=== PATIENT | male | born 1955 | race Caucasian/White ===

== ENCOUNTER 2024-05-28 13:43 | Inpatient (IN) | payer MEDICARE, BC, OTHER, SELFPAY ==
[2024-05-27] VITALS (19 sets, daily range): BP systolic 95–140; BP diastolic 63–96; BMI 31.9
[2024-05-27 01:15] LABS: % Basophils 0.9 % (0-2); % Eosinophils 3.9 % (0-6); % Immature Granulocytes 0.3 % (0-0.5); % Lymphocytes 34.5 % (20.5-51.1); % Monocytes 9.6 % (1.7-9.3); % Neutrophils 50.8 % (42.2-75.2); Absolute Basophils 0.1 10^3/uL (0-0.2); Absolute Eosinophils 0.3 10^3/uL (0-0.7); Absolute Lymphocytes 2.2 10^3/uL (1.2-3.4); Absolute Monocytes 0.6 10^3/uL (0.1-0.6); Absolute Neutrophils 3.3 10^3/uL (1.4-6.5); Hematocrit 41.2 % (39.0-52.0); Hemoglobin 13.8 g/dL (13.0-18.0); Mean Corp Hgb Conc. 33.5 g/dL (33.0-37.0); Mean Corpuscular Hgb 30.1 pg (27.0-31.0); Nucleated Red Blood Cells % 0 % (-); Platelet Count 221 10^3/uL (130-400); Red Blood Cell Count 4.58 10^6/uL (4.70-6.10); Red Cell Dist. Width 12.6 % (11.5-14.5); White Blood Cell Count 6.5 10^3/uL (4.8-10.8)
[2024-05-27 01:30] LABS: ALT (SGPT) 20 U/L (0-50); AST (SGOT) 25 U/L (17-59); Albumin 4.6 g/dl (3.5-5.0); Alkaline Phosphatase 48 U/L (38-126); Blood Urea Nitrogen 22 mg/dl (9-20); Calcium 9.9 mg/dl (8.4-10.2); Carbon Dioxide 27 mmol/L (22-30); Chloride 104 mmol/L (98-107); Glucose 129 mg/dl (70-99); Potassium 3.7 mmol/L (3.5-5.1); Sodium 143 mmol/L (135-145); Total Bilirubin 1.2 mg/dl (0.2-1.3); Total Protein 7.2 g/dl (6.3-8.2); eGFR > 60.00
[2024-05-27 01:33] LABS: Troponin I < 0.012 ng/ml
--- NOTE | 2024-05-27 02:56 | ED.GENMED ---
History of Present Illness
<ABRAHAM Stratton - Last Filed: 05/27/24 03:52>
General
Chief Complaint: Cardiac Symptoms
Source: patient and spouse
Exam Limitations: none
Time Seen by Provider: 05/27/24 03:25
Nursing documentation reviewed up to this point in time: agreed with
History of Present Illness
History of Present Illness:
Pt is a 68 y/o M w/ PMH of type 2 DM, HLD, skin cancer and kidney stones who presents to the ED for 'heart fluttering' x 1 hour. He states it began as he was sitting on the toilet for a BM but denies he was straining at the time. He states nothing
made it worse or better. He states he could feel it in his chest and it was constant. He states he had one episode of the same feeling when he was 18 y/o. Upon arrival to the ED today, he states that the fluttering has stopped. He also admits to a
brief episode of nausea and jaw pain that occurred during the episode of flutter that only lasted for a few minutes and then resolved. Pt denies headache, vomiting, changes in vision, chest pain, dyspnea, abdominal pain, weakness or tingling in
extremities x 4, and diarrhea.
Past History
<ABRAHAM Stratton - Last Filed: 05/27/24 03:52>
Past History
ED Past Medical History: Hypercholesterolemia, NIDDM and Other (hx of chronic knee pain. )
ED Past Surgical History: Other (right knee surgery. )
Social History
Living: with family
Review of Systems
<ABRAHAM Stratton - Last Filed: 05/27/24 03:52>
Review of Systems
Allergies reviewed?: Yes
Other source history: family
Constitutional: Reports no symptoms
Respiratory: Reports no symptoms
Cardiac: Reports palpitations (pt describes fluttering); Denies chest pain, diaphoresis or syncope
ABD/GI: Reports nausea (briefly during fluttering episode); Denies abdominal pain, vomiting, diarrhea or bloody stools
: Reports no symptoms
Musculoskeletal: Reports other (jaw pain lasting for a few moments during fluttering episode)
Neurological: Reports no symptoms
Phy Exam
<ABRAHAM Stratton - Last Filed: 05/27/24 03:52>
General Physical Exam
General Presentation: well appearing and no apparent distress
General age: appears stated age
General Skin: warm and dry
General Habitus: normal
General Mental: alert
General Hydration: appears well hydrated
Cardiovascular Exam
Cardiovascular Exam: regular rate/rhythm, no edema, no gallop and no murmur
Pulmonary Exam
Pulmonary Exam: lungs clear and no respiratory distress
Course
<ABRAHAM Stratton - Last Filed: 05/27/24 03:52>
Orders/Labs/Results
Orders:
Orders
05/27/24 00:34
ECG [Electrocardiogram (*1)] Urgent
Reason for Study: Palpitations
EKG- Treatment ONCE
05/27/24 00:59
Complete Blood Count/With Diff Urgent
Comprehensive Metabolic Panel Urgent
Magnesium Urgent
Comment: ADD ON
TSH Reflex To Free T4 Urgent
Comment: ADD ON
Troponin I Urgent
05/27/24 03:27
Add On- LAB Urgent
Tests Added?: TSH w reflex to free T-4: Magnesium
05/27/24 04:05
Troponin I Urgent
05/27/24 04:19
0.9% Sodium Chloride 1000 ml [Nss] 1,000 ml IV BOLUS
Abnormal Lab Results
05/27/24 05/27/24
00:59 04:05
RBC 4.58 L 10^6/uL
(4.70-6.10)
Monocytes % 9.6 H %
(1.7-9.3)
BUN 22 H mg/dl
(9-20)
Glucose 129 H mg/dl
(70-99)
Troponin I 0.070 H* D ng/ml
05/27/24 00:59
05/27/24 00:59
Vital Signs
Initial and Last Documented VS:
Initial Vital Signs
Temp Pulse Resp BP Pulse Ox
97.8 F 118 20 140/94 95
05/27/24 00:43 05/27/24 00:43 05/27/24 00:43 05/27/24 00:43 05/27/24 00:43
Last Documented Vital Signs
Temp Pulse Resp BP Pulse Ox
97.8 F 67 17 102/71 95
05/27/24 00:43 05/27/24 05:00 05/27/24 05:00 05/27/24 05:00 05/27/24 05:00
<Yani Phan, DO - Last Filed: 05/27/24 06:03>
Orders/Labs/Results
Orders:
Orders
05/27/24 00:34
ECG [Electrocardiogram (*1)] Urgent
Reason for Study: Palpitations
EKG- Treatment ONCE
05/27/24 00:59
Complete Blood Count/With Diff Urgent
Comprehensive Metabolic Panel Urgent
Magnesium Urgent
Comment: ADD ON
TSH Reflex To Free T4 Urgent
Comment: ADD ON
Troponin I Urgent
05/27/24 03:27
Add On- LAB Urgent
Tests Added?: TSH w reflex to free T-4: Magnesium
05/27/24 04:05
Troponin I Urgent
05/27/24 04:19
0.9% Sodium Chloride 1000 ml [Nss] 1,000 ml IV BOLUS
Abnormal Lab Results
05/27/24 05/27/24
00:59 04:05
RBC 4.58 L 10^6/uL
(4.70-6.10)
Monocytes % 9.6 H %
(1.7-9.3)
BUN 22 H mg/dl
(9-20)
Glucose 129 H mg/dl
(70-99)
Troponin I 0.070 H* D ng/ml
05/27/24 00:59
05/27/24 00:59
Vital Signs
Initial and Last Documented VS:
Initial Vital Signs
Temp Pulse Resp BP Pulse Ox
97.8 F 118 20 140/94 95
05/27/24 00:43 05/27/24 00:43 05/27/24 00:43 05/27/24 00:43 05/27/24 00:43
Last Documented Vital Signs
Temp Pulse Resp BP Pulse Ox
97.8 F 67 17 102/71 95
05/27/24 00:43 05/27/24 05:00 05/27/24 05:00 05/27/24 05:00 05/27/24 05:00
<ABRAHAM Stratton - Last Filed: 05/27/24 03:52>
MDM/Problems Addressed
Differential Diagnosis Includes:
AFib, SVT, anxiety
<ABRAHAM Stratton - Last Filed: 05/27/24 03:52>
*Critical Care Note
Total Time (30-74mins, 75-104mins- exclusive of procedures): Not Applicable
ED Attending Note
<ABRAHAM Stratton - Last Filed: 05/27/24 03:52>
-
Portions of this chart may have been created with voice recognition software.� Occasional wrong word or��sound alike� substitutions may have occurred due to the inherent limitations of voice recognition software.
<Yani Phan, DO - Last Filed: 05/27/24 06:03>
ED Attending Note
Patient seen and examined by attending physician: Yes
I performed the substantive portion of visit, reviewed & personally made and approve the management plan that is documented in note by myself or AR.: Yes
ED Attending Note:
This is a 68-year-old gentleman with history of myb-srjzkqs-xwdniolpf diabetes, hyperlipidemia, kidney stones. He complains of palpitations that began tonight approximately 1 hour prior to arrival while sitting on the toilet. Palpitations
described as his heart beating very fast with intermittent episodes of skipping or pounding hard in nature. He denies dizziness nor lightheadedness but does admit to mild ache in his jaw. No chest pain, no shortness of breath, no diaphoresis.
Palpitations persisted for approximately an hour thus he presented to the ED for further evaluation but just prior to arrival palpitations resolved and he has been asymptomatic since arrival.
He admits to 1 similar episode when he was in his 20s. No history of CAD nor arrhythmia.
He admits to moderate alcohol consumption tonight and he admits to at least 1 alcoholic drink per evening but has been drinking a little more since .
No recent URI nor GI illness.
No leg pain or swelling.
Initial triage EKG shows sinus tachycardia at heart rate of 108 otherwise unremarkable.
quality assurance monitor shows normal sinus rhythm. No ectopy.
GENERAL: 68-year-old gentleman appears his stated age, awake and alert, pleasant, appears in no acute distress. is accompanying.
EYE: anicteric
NECK: Supple, nontender, no meningismus, no significant adenopathy.
ENT: , oral mucosa is moist. No rhinorrhea.
CARDIAC: Regular rate and rhythm. no murmur.
LUNGS: Clear breath sounds bilaterally, no acute respiratory distress, no wheezes/rales/rhonchi
ABDOMEN: Soft, nondistended, without focal tenderness, normoactive BS.
NEUROLOGICAL: Alert and oriented x3, no focal neuro deficits.
SKIN: Warm and dry, normal color, skin intact. No rash.
MUSCULOSKELETAL: No C/C/E. peripheral pulses are full and equal b/l. No palpable tenderness.
PSYCH: Normal and appropriate interaction.
Concern for tacky arrhythmia that resolved prior to arrival. Concern for thyroid disorder, electrolyte abnormality, dehydration.
With palpitations and complaints of jaw ache, concern for ACS.
Thus far labs are unremarkable. Normal troponin. Will add magnesium, thyroid functions and will recheck troponin.
05/27/2024 0600 AM
Patient remains asymptomatic.
Monitor continues to normal sinus rhythm.
Initial troponin negative but repeat has trended up to 0.07.
As above, I have significant concern for tacky arrhythmia with demand ischemia.
Case discussed with cardiology who request patient be admitted to hospital service with consult to cardiology.
Discharge Plan
Departure
Patient Disposition: Admit
Date of Disposition: 05/27/24
Time of Disposition: 06:02
Admit to doctor: Joasfat
Presentation/result/management discussed w/ accepting MD/DO: Hospitalist
Condition: Fair
Discharge Problem:
ACS (acute coronary syndrome), Palpitations
Prescriptions:
No Action
atorvastatin 20 MG tablet
20 mg PO QPM
cyanocobalamin (vitamin B-12) 1,000 MCG tablet
1,000 mcg PO DAILY
aspirin 81 MG tablet,delayed release (DR/EC)
81 mg PO DAILY
metformin 1,000 MG tablet
500 mg PO BID
tadalafil [Cialis] 5 MG tablet
5 mg PO DAILY
magnesium Tablet
1 tab PO DAILY
Rx Instructions:
unsure of mg
Ozempic 0.25 mg or 0.5 mg (2 mg/3 mL) Pen Injector
0.25 mg SC QWEEK
Referrals:
Matthew Mcrae MD [Family Provider] -
Interventions
Interventions:
*Risk Screen - Suicide Last Done: 05/27/24 00:43
*Neglect/Abuse Screening Last Done: 05/27/24 00:43
ED- Fall Risk Assessment Last Done: 05/27/24 02:20
*ED COVID-19 Vaccine History Last Done: 05/27/24 02:20
ED- Pulmonary Assessment Last Done: 05/27/24 02:20
ED- Cardiac Assessment Last Done: 05/27/24 02:20
Discharge Date and Time
Print Language: POLISH
[2024-05-27 03:52] LABS: Magnesium 1.6 mg/dl (1.6-2.3)
[2024-05-27 04:24] LABS: TSH Reflex To Free T4 2.75 uIU/ml (0.47-4.68)
[2024-05-27] MEDS: NSS 1000 IV (04:57)
--- NOTE | 2024-05-27 06:28 | HPS.HSE ---
Family Physician
-
Family Physician: Matthew Mcrae
Chief Complaint
-
Palpitations
History of Present Illness
Patient is a 68y M with PMH significant for DM-II who presents to ED complaining of palpitations. Patient states that he was preparing for bed last PM when he noted racing / irregular heart beat in his chest. He felt somewhat 'woozy' and
nauseated. He noted some numbness in the jaw. No emesis. No SOB or diaphoresis. He denies any chest pain or pressure. He presents to the ED for further evaluation and treatment. Patient states that his symptoms resolved just prior to arriving
here - lasting about 1 hour in total.
Patient notes that he had a similar episode about 50 years ago. He was seen in the ED at that time and advised to 'bear down' if it ever happened again. No episodes in the interim.
In the ED, patient is resting comfortably and has no complaints at present.
Medical History
Past Medical History
Past Medical History: Reports Other
Additional Past Medical History:
DM-II
History of SVT
Glaucoma
Past Surgical History: Reports Other
Additional Past Surgical History:
R Eye Surgery
Cataracts
Cholecystectomy
Shoulder Surgery
Bilateral Knee Surgeries
Social History
Tobacco: Former Smoker (Quit smoking 30 years ago. Approx 30 pack years total use.)
Alcohol: Daily (2 drinks daily. Last drink was this evening.)
Drug: None
Personal:
Living: With Family
Family History
Family History: Other (Father: DM, CAD Mother: Head and Neck Cancer)
Allergies / Home Medications
Allergies reflects when Allergies were last updated in [facility].
Home Medications with original date entered in [facility]
Allergy/Medication List:
Allergies
Allergy/AdvReac Type Severity Reaction Status Date / Time
penicillin V Allergy Rash Verified 05/27/24 00:46
Home Medications
aspirin 81 mg tablet,delayed release 81 mg PO DAILY 08/12/20
atorvastatin 20 mg tablet 20 mg PO QPM 08/12/20
cyanocobalamin (vitamin B-12) 1,000 mcg tablet 1,000 mcg PO DAILY 08/12/20
metformin 1,000 mg tablet 500 mg PO BID 08/12/20
tadalafil 5 mg tablet (Cialis) 5 mg PO DAILY 08/12/20
magnesium 1 tab PO DAILY 05/27/24
semaglutide 0.25 mg or 0.5 mg (2 mg/3 mL) subcutaneous pen injector (Ozempic) 0.25 mg SC QWEEK 05/27/24
Review of Systems
-
History Source: Patient
A 12 point ROS was completed and negative except as noted: Yes
Constitutional: Denies Fever or Chills
EENT: Denies Sore Throat
Respiratory: Denies Cough or Trouble Breathing
Cardiac: Reports Palpitations; Denies Chest Pain, Diaphoresis or Syncope
Abdomen/GI: Reports Nausea; Denies Abdominal Pain, Vomiting or Diarrhea
: Denies Dysuria or Frequency
Neurological: Reports Dizzy; Denies Headache
Psych: Denies Depression or Anxiety
Physical Exam
Vital Signs
Vital Signs
Temp Pulse Resp BP Pulse Ox
97.8 F 67 17 102/71 95
05/27/24 00:43 05/27/24 05:00 05/27/24 05:00 05/27/24 05:00 05/27/24 05:00
Physical Exam
General: Other (68y M in no acute distress.)
HEENT: Moist mucous membranes and PERRLA
Respiratory: Clear; No Wheezes, Rales or Rhonchi
Cardiac: S1/S2 and Regular Rhythm; No Murmur
GI: Soft, Non Tender, Non Distended and Normal Bowel Sounds
Musculoskeletal: No Clubbing, No Cyanosis and No Edema
Neuro: AO x 3
Laboratory Results
-
05/27/24 00:59
05/27/24 00:59
Laboratory Results
Total Bilirubin 1.2 mg/dl (0.2-1.3) 05/27/24 00:59
AST 25 U/L (17-59) 05/27/24 00:59
ALT 20 U/L (0-50) 05/27/24 00:59
Alkaline Phosphatase 48 U/L (38-126) 05/27/24 00:59
Troponin I 0.070 ng/ml H* D 05/27/24 04:05
Impression/Plan
-
A/P: Patient is a 68y M with PMH significant for DM who presents to ED complaining of palpitations.
Palpitations
Abnormal Troponin
- Observe overnight for further evaluation and treatment.
- ? SVT that spontaneously resolved - prior h/o similar 50 some years ago.
- Monitor on telemetry for any recurrence.
- TFTs are normal. Check Echo.
- Troponin mildly elevated on 2nd set - likely due to tachyarrhythmia.
- No complaints of chest pain, dyspnea, etc.
- Follow troponin to peak.
- Cardiology evaluation for additional recommendations.
DM-II
- Stable. Hold PO medications / Ozempic acutely.
- Follow glucose and cover with SSI as needed.
- Update A1C.
DVT Prophylaxis: SCDs
Code Status: Full
[2024-05-27] MEDS: ASPIR LOW (ENTERIC COATED) 81 MG PO (08:34)
[2024-05-27 09:42] LABS: Glucose - Point of Care 101 mg/dl (70-99)
--- NOTE | 2024-05-27 10:10 | W.PN.HOSP.TC ---
Today's Communication/Plan
-
See plan
Assessment / Plan
Assessment / Plan
Impression:
Patient is a 68y M with PMH significant for DM who presents to ED complaining of palpitations.
Palpitations
Non-AK troponin elevation
Diabetes type 2
Plan:
Self-limited episode of palpitations
Currently ECG normal sinus rhythm
Denies chest pain, shortness of breath, lower extremity pain.
Non-AK troponin elevation.
Cardiac monitoring
Echocardiogram.
D-dimer.
Follow troponin trend
Cardiology evaluation
DM-II
- Stable. Hold PO medications / Ozempic acutely.
- Follow glucose and cover with SSI as needed.
- Update A1C.
DVT Prophylaxis: SCDs
Code Status: Full
Anticipated Discharge: Within 24 hours
Subjective/Interval History
-
Date of Service: May 27, 2024
Objective Data
-
Labs:
Laboratory Results
05/27/24
00:59
WBC 6.5
Hgb 13.8
Hct 41.2
Plt Count 221
Sodium 143
Potassium 3.7
Chloride 104
Carbon Dioxide 27
BUN 22 H
Creatinine 1.0
Glucose 129 H
Calcium 9.9
Total Bilirubin 1.2
AST 25
ALT 20
Alkaline Phosphatase 48
Vital Signs:
Vital Signs
Temp Pulse Resp BP Pulse Ox
97.6 F 80 18 117/72 91
05/27/24 08:15 05/27/24 10:00 05/27/24 10:00 05/27/24 09:00 05/27/24 10:00
Physical Exam
-
General: Well Developed and No Apparent Distress
HEENT: Normocephalic, Atraumatic and Moist Mucous Membranes
Respiratory: Clear to Auscultation
Cardiac: Regular Rhythm and S1/S2; Negative Murmur, Rub or Gallop
GI: Soft, Nontender, Nondistended and Normal Bowel Sounds; Negative Organomegaly
Rectal: Deferred by Provider
Musculoskeletal: No Clubbing, No Cyanosis and No Edema
Skin: Negative Rash
Neuro: Nonfocal/Grossly Intact
[2024-05-27 10:39] LABS: D-Dimer 0.69 ug/mlFEU (0.00-0.50)
[2024-05-27 10:48] LABS: Troponin I 0.054 ng/ml
[2024-05-27 12:00] LABS: Glucose - Point of Care 108 mg/dl (70-99)
--- NOTE | 2024-05-27 12:19 | CON.CAR ---
Addendum entered and electronically signed by Salvatore Quintanilla MD 05/27/24 18:34:
I saw and examined the patient.
The [facility] Clinical Programmer's note was reviewed and I agree with the note.
Comment: Briefly, 68-year-old man past medical history of pam-ndvvcyh-iitxveqfo diabetes and hyperlipidemia who presented following an episode of palpitations. He had abrupt onset of heart racing sensation and tells me this was a regular. By his
description it is possible this was an episode of atrial fibrillation.
ECG on arrival showed sinus tachycardia
No arrhythmias seen on telemetry thus far
Initial troponin was undetectable and then phyllis to 0.07 and down trended subsequently
Transthoracic echocardiogram with normal biventricular function and no segmental wall abnormalities
CTA performed which was unremarkable
Monitor on telemetry overnight
At time of discharge would plan for long-term outpatient monitor to assess for arrhythmia
Discussed rise and fall of troponin with patient and who is at bedside. He was not experiencing chest pain at the time of his arrhythmia but did have jaw discomfort which he has never experienced before by his report. I explained that left
heart catheterization would be reasonable and he is agreeable to proceed. Explained that alternatively medical management and outpatient stress testing would be an option.
Continue aspirin and atorvastatin for now
N.p.o. at midnight for left heart catheterization tomorrow
Original Note:
Consultation
Consultation Request
Date/Time Consultation Requested: 05/27/24
Date/Time Consultation Performed: 05/27/24
Requesting Provider: Dr. Mendoza
Performing Provider: Dr. Quintanilla
Reason for Consultation: Palpitations, jaw pain
Medical History
-
History of Present Illness:
Patient came to [facility] very early this morning with palpitations and cardiology has been consulted. Patient had a normal day yesterday, but while seated on the toilet and emptying his bladder he suddenly felt palpitations. He also had B/L jaw pain. He
went to bed and couldn't fall asleep because his heart was racing. His could hear his fast and irregular heart beat when she listened to his chest and so they came to [facility]. Patient says palpitations stopped as he walked into the ER. He was in
SR on ECG and initial Troponin was normal and then up to 0.07, but is now trending down. Jaw pain resolved last night without specific intervention and has not recurred. He exercises with a rowing machine several times a week and does not get jaw
pain. No previous cardiac testing.
PMH:
DM 2
Hyperlipidemia
Past Medical History
Past Medical History: Other (in HPI)
Past Surgical History: Orthopedic and Other (h/o orbital fracture with surgical repair)
Social History
Tobacco: Former Smoker
Alcohol: Daily
Drug: None
Personal:
Living: With Family
Family History
Family History: Diabetes and Hypertension
Allergies / Home Medications
Allergy/AdvReac Type Severity Reaction Status Date / Time
penicillin V Allergy Rash Verified 05/27/24 00:46
�Medication �Instructions �Recorded �Confirmed �Type
aspirin 81 mg tablet,delayed 81 mg PO DAILY 08/12/20 05/27/24 History
release
atorvastatin 20 mg tablet 20 mg PO QPM 08/12/20 05/27/24 History
cyanocobalamin (vitamin B-12) 1,000 mcg PO DAILY 08/12/20 05/27/24 History
1,000 mcg tablet
tadalafil 5 mg tablet (Cialis) 5 mg PO DAILY 08/12/20 05/27/24 History
coenzyme Q10 100 mg capsule 200 mg PO MOWEFR 05/27/24 05/27/24 History
(CoQ-10)
ibuprofen 200 mg tablet 400 mg PO Q6H PRN mild pain 05/27/24 05/27/24 History
magnesium 1 tab PO DAILY 05/27/24 05/27/24 History
metformin 500 mg tablet 500 mg PO BID 05/27/24 05/27/24 History
semaglutide 0.25 mg or 0.5 mg (2 0.25 mg SC MO 05/27/24 05/27/24 History
mg/3 mL) subcutaneous pen injector
(Ozempic)
Review of Systems
-
History Source: Patient and Family ( sitting bedside)
All other systems: Negative unless noted
Physical Exam
Vital Signs
Temp Pulse Resp BP Pulse Ox
97.6 F 74 20 108/68 91
05/27/24 08:15 05/27/24 11:45 05/27/24 11:45 05/27/24 11:12 05/27/24 11:45
GEN: NAD. AAOx3
HEENT: EOMI, MMM
LUNGS: RA. CTA B/L, no wheezes/rales
CV: Reg, S1/S2, no murmur
ABD: soft, BS+, NT, ND
EXT: No clubbing, cyanosis, lesions or edema B/L
NEURO: Gross non-focal
SKIN: Warm, dry and pink. No rash
Lab Results
05/27/24 00:59
05/27/24 00:59
Troponin I 0.054 ng/ml H* 05/27/24 10:14
Impression / Plan
-
PCP: Dr. Mcrae
Cardiology: None prior to admission
Impression:
Admitted with palpitations and elevated Troponin 05/27/24
Elevated Troponin
Jaw pain
Palpitations
DM 2
Hyperlipidemia
Elevated D dimer
Echo 05/27/2024: EF 55 to 60%, no gross regional wall motion abnormality mild concentric LVH, normal RV size and function, no significant valvular pathology
Plan:
-Patient came to [facility] very early this morning with palpitations and cardiology has been consulted. Patient had a normal day yesterday, but while seated on the toilet and emptying his bladder he suddenly felt palpitations. He also had B/L jaw pain.
He went to bed and couldn't fall asleep because his heart was racing. His could hear his fast and irregular heart beat when she listened to his chest and so they came to [facility]. Patient says palpitations stopped as he walked into the ER. He was
in SR on ECG and initial Troponin was normal and then up to 0.07, but is now trending down. Jaw pain resolved last night without specific intervention and has not recurred. He exercises with a rowing machine several times a week and does not get jaw
pain. No previous cardiac testing.
-ECG and tele reviewed by me, he has been in SR throughout, no acute ischemic changes.
-Echo noted above and also reviewed with patient and .
-Reviewed jaw pain, elevated Troponin and risk factors of DM 2 and hyperlipidemia. Patient is agreeable to cath.
-No chest/jaw pain currently.
-Cont aspirin 81 mg daily
-Cont to follow on tele.
-Discussed the possibility of atrial arrhythmia being the palpitations he felt last night. Will cont to follow on tele and also plan on a 2 week monitor at time of d/c and pending results might eventually need a loop.
[2024-05-27 14:52] LABS: Troponin I 0.035 ng/ml
--- NOTE | 2024-05-27 17:52 | PTCARENOTE ---
pt arrived on unit from ED. walked from stretcher to bed. VS WNL. placed on tele. call north within reach. will continue to monitor.
[2024-05-27 17:53] LABS: Glucose - Point of Care 117 mg/dl (70-99)
[2024-05-27] MEDS: LIPITOR 20 MG PO (18:28)
[2024-05-27 21:32] LABS: Glucose - Point of Care 121 mg/dl (70-99)
[2024-05-27 22:05] LABS: Troponin I 0.018 ng/ml
[2024-05-28] VITALS (9 sets, daily range): BP systolic 114–146; BP diastolic 66–80; PULSE 62–73; BMI 31.5
[2024-05-28 07:45] LABS: Hematocrit 37.1 % (39.0-52.0); Hemoglobin 12.3 g/dL (13.0-18.0); Mean Corp Hgb Conc. 33.2 g/dL (33.0-37.0); Mean Corpuscular Hgb 30.4 pg (27.0-31.0); Mean Corpuscular Volume 91.6 fL (80.0-94.0); Mean Platelet Volume 9.3 fL (7.4-10.4); Platelet Count 184 10^3/uL (130-400); Red Blood Cell Count 4.05 10^6/uL (4.70-6.10); Red Cell Dist. Width 12.8 % (11.5-14.5); White Blood Cell Count 6.5 10^3/uL (4.8-10.8)
[2024-05-28 08:06] LABS: Blood Urea Nitrogen 22 mg/dl (9-20); Carbon Dioxide 29 mmol/L (22-30); Chloride 104 mmol/L (98-107); Estimated Creatinine Clearance 72 ml/min; Glucose 106 mg/dl (70-99); Potassium 4.3 mmol/L (3.5-5.1); Sodium 140 mmol/L (135-145); eGFR > 60.00
[2024-05-28 09:04] LABS: Glycohemoglobin (HgbA1c) 5.6 % (4.0-5.6)
[2024-05-28] MEDS: ASPIR LOW (ENTERIC COATED) 81 MG PO (09:06)
[2024-05-28 09:09] LABS: Glucose - Point of Care 100 mg/dl (70-99)
[2024-05-28 11:38] LABS: Glucose - Point of Care 104 mg/dl (70-99)
--- NOTE | 2024-05-28 14:18 | PTCARENOTE ---
Received pt from laborer steel handling via bed. VSS. No complaints of pain. Right radial band in place. Post laborer steel handling protocol initiated.
--- NOTE | 2024-05-28 14:26 | ITS.CL.CATH ---
[facility] - Catheterization
Cardiac Catheterization
Procedure Report:
LEFT HEART CATHETERIZATION
Date of Procedure: May 28, 2024
Referring: Salvatore Quintanilla
PROCEDURES:
1. Left heart catheterization, coronary angiogram.
2. Ultrasound-guided access
INDICATION: Concern for NSTEMI
ACCESS: Right radial artery, 6 Georgian sheath, under ultrasound guidance
HEMODYNAMICS : (mmHg)
AO (s/d) : 125/75
LV (s/d) : 133/7
LVEDP : 15
CORONARY FINDINGS
DOMINANCE: Right
LEFT MAIN: The left main artery is a large-caliber vessel which gives rise to the left anterior descending artery and the left circumflex artery. There is minimal luminal irregularities
LEFT ANTERIOR DESCENDING: The left anterior descending artery is a medium to large caliber vessel which gives rise to 2 major diagonal branches as it courses to the anterior interventricular groove and wraps around the apex. There is minimal
luminal irregularities.
CIRCUMFLEX: The left circumflex artery is a medium caliber vessel which gives rise to 1 major branching obtuse marginal branch. There is minimal luminal irregularities
RIGHT CORONARY ARTERY: The right coronary artery is a large-caliber, dominant vessel which gives rise to the right posterior descending artery and the right posterolateral system. There is minimal luminal irregularities.
SEDATION: 32 minutes of procedural sedation was utilized. An independent biomedical scientist was present to assist with and help manage the patient's level of consciousness and physiologic status.
RADIATION SUMMARY: Fluoro Time (min): 4.3, Dose (mGy): 310.4, DAP (Gy.cm2) : 22.05
Closure Device: Vascular band over right radial artery, 10 cc of air.
CONCLUSIONS
1. No obstructive coronary artery disease.
2. LVEDP of 15 mmHg.
RECOMMENDATIONS
1. Wean radial band per protocol.
2. Given presentation of palpitations in the setting of mild jaw pain, we will help arrange for a 2-week express manager to rule out any tachyarrhythmias.
3. Continued optimization of cardiovascular risk factors.
Nicci Brito MD, FACC, [facility]
--- NOTE | 2024-05-28 16:19 | W.PN.HOSP.TC ---
Today's Communication/Plan
-
Monitor for recurrent arrhythmia.
Postprocedure monitoring.
Discharge planning
Assessment / Plan
Assessment / Plan
Impression:
Patient is a 68y M with PMH significant for DM who presents to ED complaining of palpitations.
Palpitations
Non-[place] troponin elevation
Diabetes type 2
Plan:
Self-limited episode of palpitations
Currently ECG normal sinus rhythm
Denies chest pain, shortness of breath, lower extremity pain.
Non-[place] troponin elevation.
Cardiac monitoring with no arrhythmia.
Echocardiogram. Preserved biventricular function with no valvular abnormalities
CT scan of the chest negative for pulmonary embolism
Cardiac cath with no obstructive CAD
DM-II
- Stable. Hold PO medications / Ozempic acutely.
- Follow glucose and cover with SSI as needed.
- Update A1C. 5.6
DVT Prophylaxis: SCDs
Code Status: Full
Anticipated Discharge: 24 - 48 hours
Subjective/Interval History
-
Date of Service: May 28, 2024
Objective Data
-
Labs:
Laboratory Results
05/28/24
07:13
WBC 6.5
Hgb 12.3 L
Hct 37.1 L
Plt Count 184
Sodium 140
Potassium 4.3
Chloride 104
Carbon Dioxide 29
BUN 22 H
Creatinine 1.1
Glucose 106 H
Calcium 9.0
Vital Signs:
Vital Signs
Temp Pulse Resp BP Pulse Ox
97.6 F 71 16 133/80 97
05/28/24 15:50 05/28/24 15:50 05/28/24 15:50 05/28/24 15:50 05/28/24 15:50
I&O
05/27/24 05/28/24 05/29/24
06:59 06:59 06:59
Intake Total 480 / 480
Balance 480 / 480
Physical Exam
-
General: Well Developed and No Apparent Distress
HEENT: Normocephalic, Atraumatic and Moist Mucous Membranes
Respiratory: Clear to Auscultation
Cardiac: Regular Rhythm and S1/S2; Negative Murmur, Rub or Gallop
GI: Soft, Nontender, Nondistended and Normal Bowel Sounds; Negative Organomegaly
Rectal: Deferred by Provider
Musculoskeletal: No Clubbing, No Cyanosis and No Edema
Skin: Negative Rash
Neuro: Nonfocal/Grossly Intact
--- NOTE | 2024-05-28 17:21 | CM ---
Reviewed chart, met with patient to obtain information for assessment. Patient stated that he lives with his in a two story home with one step to enter. He described himself as independent with all of his ADLs, personal care, dressing and
bathing. 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 He drives and can get himself to his appointments and do all of his own shopping.
He denied any DME.
He has never had VN services.
He has a prescription plan and uses, [facility] in [place] for all of his medications.
Patient's PCP is Matthew Mcrae.
Patient stated that he feels he is at baseline and would like to return home when stable for discharge.
Plan: Case management will continue to follow and assist with discharge planning. Home no needs.
[2024-05-28] MEDS: LIPITOR 20 MG PO (18:03)
[2024-05-28] MEDS: NOVOLOG FLEXPEN-LOW RESISTANCE 3 UNITS SC (18:03)
[2024-05-29 00:09] VITALS: BP 121/69
[2024-05-29 03:00] VITALS: BP 114/70
[2024-05-29 06:14] LABS: Hematocrit 38.3 % (39.0-52.0); Hemoglobin 12.3 g/dL (13.0-18.0); Mean Corp Hgb Conc. 32.1 g/dL (33.0-37.0); Mean Corpuscular Hgb 30.3 pg (27.0-31.0); Mean Corpuscular Volume 94.3 fL (80.0-94.0); Mean Platelet Volume 9.4 fL (7.4-10.4); Platelet Count 188 10^3/uL (130-400); Red Blood Cell Count 4.06 10^6/uL (4.70-6.10); Red Cell Dist. Width 12.7 % (11.5-14.5); White Blood Cell Count 6.8 10^3/uL (4.8-10.8)
[2024-05-29 06:35] LABS: Blood Urea Nitrogen 20 mg/dl (9-20); Calcium 9.2 mg/dl (8.4-10.2); Carbon Dioxide 30 mmol/L (22-30); Chloride 103 mmol/L (98-107); Estimated Creatinine Clearance 72 ml/min; Glucose 98 mg/dl (70-99); Potassium 4.7 mmol/L (3.5-5.1); Sodium 140 mmol/L (135-145); eGFR > 60.00
[2024-05-29 07:30] VITALS: BP 135/69
[2024-05-29 08:39] LABS: Glucose - Point of Care 106 mg/dl (70-99)
[2024-05-29] MEDS: NOVOLOG FLEXPEN-LOW RESISTANCE SC (08:39)
[2024-05-29] MEDS: ASPIR LOW (ENTERIC COATED) 81 MG PO (08:40)
--- NOTE | 2024-05-29 09:24 | W.DS.TRANS ---
DC Summary - Mover Helper
-
Discharge Instructions:
Discharge Diagnosis/Procedures Palpitations and jaw pain, elevated Troponin
level, cardiac catheterization
Diet Low Fat,Diabetic, Carb Controlled
Activity Other activity
Driving Restrictions No driving for 24 hours
Bathing Restrictions OK to Shower
Others Tests -A 2 week heart monitor is being applied before
you leave the hospital. At the end of the
monitoring period please peel off the monitor
and mail it back in the postage-paid box
provided.
Instructions:
Stand-Alone Forms: DC Instructions- Cath/EP Lab
Changes to Home Medications: No
Discharge Medications:
DC Medications w/original date entered in [employer]
aspirin 81 mg tablet,delayed release 81 mg PO DAILY Blood Clot Prevention/Tx 08/12/20
atorvastatin 20 mg tablet 20 mg PO QPM High Cholesterol 08/12/20
cyanocobalamin (vitamin B-12) 1,000 mcg tablet 1,000 mcg PO DAILY Supplement 08/12/20
tadalafil 5 mg tablet (Cialis) 5 mg PO DAILY Lung/Breathing Issues 08/12/20
coenzyme Q10 100 mg capsule (CoQ-10) 200 mg PO MOWEFR Supplement 05/27/24
ibuprofen 200 mg tablet 400 mg PO Q6H PRN mild pain 05/27/24
magnesium 1 tab PO DAILY Supplement 05/27/24
metformin 500 mg tablet 500 mg PO BID Diabetes 05/27/24
semaglutide 0.25 mg or 0.5 mg (2 mg/3 mL) subcutaneous pen injector (Ozempic) 0.25 mg SC MO Diabetes 05/27/24
Home Medication Changes
Pending Results: No
[2024-05-29 11:03] VITALS: BP 150/77
== END 2024-05-29 12:12 | disposition home or self-care (01) | DRG 287 ==
LOC: 3 WEST ACU 13:43
PROVIDERS: Internal Medicine Interventional Cardiology; Nurse Practitioner; Student in an Organized Health Care Education/Training Program; ADMITTING PHYSICIAN Hospitalist; ATTENDING PHYSICIAN Internal Medicine; EMERGENCY PHYSICIAN Emergency Medicine; FAMILY PHYSICIAN Family Medicine; OTHER PHYSICIAN Internal Medicine Cardiovascular Disease
PROC: 4A023N7 Measurement of Cardiac Sampling and Pressure, Left Heart, Percutaneous Approach (ICD-10-PCS; 2024-05-28)
PROC: B2111ZZ Fluoroscopy of Multiple Coronary Arteries using Low Osmolar Contrast (ICD-10-PCS; 2024-05-28)
DX: I24.9 Acute ischemic heart disease, unspecified (principal); Z87.891 Personal history of nicotine dependence; E11.36 Type 2 diabetes mellitus with diabetic cataract
CPT/HCPCS: 71275; 80048; 80053; 82962; 83036; 83735; 84443; 84484; 85025; 85027; 85379; 93005; 93306; 93458; 96360; 99152; 99153; 99285; C1769; C1894; Q9967

== ENCOUNTER → 2025-01-01 12:25 | Outpatient (REF) | payer MEDICARE, BC, OTHER, SELFPAY | LOC: HWRAD 12:25 | PROVIDERS: ATTENDING PHYSICIAN Internal Medicine Critical Care Medicine; FAMILY PHYSICIAN Family Medicine | DX: J84.9 Interstitial pulmonary disease, unspecified (principal) | CPT/HCPCS: 71250 ==

== ENCOUNTER 2025-01-13 06:18 | Day surgery (SDC) | payer MEDICARE, BC, OTHER, SELFPAY ==
[2025-01-13 09:46] LABS: Glucose - Point of Care 115 mg/dl (70-99)
== END 2025-01-13 12:15 | disposition home or self-care (01) ==
LOC: GI 06:18
PROVIDERS: ATTENDING PHYSICIAN Surgery
DX: Z12.11 Encounter for screening for malignant neoplasm of colon (principal); K55.20 Angiodysplasia of colon without hemorrhage; K64.8 Other hemorrhoids; D12.0 Benign neoplasm of cecum; D12.2 Benign neoplasm of ascending colon; D12.5 Benign neoplasm of sigmoid colon; Z86.0100 Personal history of colon polyps, unspecified
CPT/HCPCS: 45385; 45380; 82962; 88305